=== PATIENT | male | born 1975 | race Caucasian/White ===

== ENCOUNTER 2020-11-06 09:31 | Outpatient (CLI) | payer BC ==
[~2020-11-06] VITALS: Ht 177.8 cm; Wt 99.8 kg
[2020-11-06 09:25] VITALS: BP 146/89
[2020-11-06] MEDS ORDERED: CASIRIVIMAB/IMDEVIMAB 1,200 MG in NS (IVPB) 250 ML IV ONE (10:00)
[2020-11-06] MEDS ORDERED: diphenhydrAMINE 50 MG/ML INJ (BENADRYL) IV PRN (10:00)
[2020-11-06] MEDS ORDERED: EPINEPHrine INJECTION 1 MG/ML AMP IM PRN (10:00)
[2020-11-06 11:05] VITALS: BP 133/78
== END 2020-11-06 11:55 | disposition home or self-care (01) ==
LOC: INFUSION 09:31
PROVIDERS: ATTEND Nurse Practitioner Family
DX: U07.1 COVID-19 (principal); E78.2 Mixed hyperlipidemia

== ENCOUNTER 2020-11-15 21:55 | Emergency (ER) | payer BC ==
[~2020-11-15] VITALS: Ht 177 cm; Wt 99.8 kg
--- NOTE | 2020-11-15 22:46 | ED Chest Pain ---
General Chief Complaint: Chest Pain Stated Complaint: CHEST PAIN Nursing Triage Note: c/o sternal chest pain since 1400. denies other symptoms Source: patient Exam Limitations: no limitations History of Present Illness Date Seen by Provider: Nov 15, 2020 Time Seen by Provider: 22:30 Initial Comments Patient is a 45-year-old male who presents to the emergency department today with a chief complaint of chest "pressure" and "tightness" onset at about 2:00 today. Patient states that the symptoms have waxed and waned in intensity all day. He had a little bit of pain between his shoulder blades. He denies any associated symptoms of shortness of breath, sweating or nausea. He has never had pain quite like this before. He did spend quite a bit of time [place] this [place] States that when he was coming back he noticed the symptoms. States that he has 2 days past his quarantine from active Covid even status post [employer] vaccine. Again he denies shortness of breath or cough. No recent fevers chills or URI symptoms. He does take a baby aspirin daily. All other review of systems reviewed and negative except as stated above. 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: Yes NTG SL GEOPHYSICAL OBSERVER: No Associated Symptoms: denies symptoms Allergies and Home Medications Allergies Coded Allergies: No Known Drug Allergies (Unverified , 11/06/20) Patient Home Medication List Home Medication List Reviewed: Yes Review of Systems Review of Systems Constitutional: see HPI EENTM: No Symptoms Reported Respiratory: No Symptoms Reported Cardiovascular: Chest Pain Gastrointestinal: No Symptoms Reported Genitourinary: No Symptoms Reported Musculoskeletal: no symptoms reported Skin: no symptoms reported Psychiatric/Neurological: No Symptoms Reported All Other Systems Reviewed Negative Unless Noted: Yes Past Lesjjva-Wzinza-Ucwlpv Hx Patient Social History Tobacco Use?: No Alcohol Use?: Yes Alcohol type: Beer Immunizations Up To Date First/Initial COVID19 Vaccinat: october 13 COVID19 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 oz. kg; 31.00 BMI Method: General Appearance: No Apparent Distress, WD/WN HEENT: PERRL/EOMI Neck: Normal Inspection Respiratory: Lungs Clear, Normal Breath Sounds, No Accessory Muscle Use, No Respiratory Distress Cardiovascular: Regular Rate, Rhythm Gastrointestinal: Normal Bowel Sounds, No Organomegaly, No Pulsatile Mass, Non Tender, Soft Extremity: Normal Capillary Refill, Normal Inspection, Normal Range of Motion, Non Tender, No Calf Tenderness Neurologic/Psychiatric: Alert, Oriented x3, No Motor/Sensory Deficits, Normal Mood/Affect Skin: Normal Color, Warm/Dry Progress/Results/Core Measures Results/Orders Lab Results Laboratory Tests Test 11/15/20 22:05 Range/Units White Blood Count 9.2 4.3-11.0 10^3/uL Red Blood Count 4.62 4.30-5.52 10^6/uL Hemoglobin 14.7 13.3-17.7 g/dL Hematocrit 42 40-54 % Mean Corpuscular Volume 91 80-99 fL Mean Corpuscular Hemoglobin 32 25-34 pg Mean Corpuscular Hemoglobin Concent 35 32-36 g/dL Red Cell Distribution Width 12.6 10.0-14.5 % Platelet Count 244 130-400 10^3/uL Mean Platelet Volume 10.3 9.0-12.2 fL Immature Granulocyte % (Auto) 0 % Neutrophils (%) (Auto) 59 42-75 % Lymphocytes (%) (Auto) 30 12-44 % Monocytes (%) (Auto) 8 0-12 % Eosinophils (%) (Auto) 2 0-10 % Basophils (%) (Auto) 0 0-10 % Neutrophils # (Auto) 5.4 1.8-7.8 10^3/uL Lymphocytes # (Auto) 2.8 1.0-4.0 10^3/uL Monocytes # (Auto) 0.7 0.0-1.0 10^3/uL Eosinophils # (Auto) 0.2 0.0-0.3 10^3/uL Basophils # (Auto) 0.0 0.0-0.1 10^3/uL Immature Granulocyte # (Auto) 0.0 0.0-0.1 10^3/uL Sodium Level 143 135-145 MMOL/L Potassium Level 3.5 L 3.6-5.0 MMOL/L Chloride Level 106 98-107 MMOL/L Carbon Dioxide Level 22 21-32 MMOL/L Anion Gap 15 H 5-14 MMOL/L Blood Urea Nitrogen 16 7-18 MG/DL Creatinine 1.02 0.60-1.30 MG/DL Estimat Glomerular Filtration Rate > 60 BUN/Creatinine Ratio 16 Glucose Level 114 H 70-105 MG/DL Calcium Level 9.5 8.5-10.1 MG/DL Total Creatine Kinase 46 30-200 U/L Creatine Kinase MB 0.8 <6.6 NG/ML Troponin I < 0.028 <0.028 NG/ML My Orders Orders - GUADALUPE CABA MD Ekg Tracing (11/15/20 22:44) Chest 1 View, Ap/Pa Only (11/15/20 22:44) Cbc With Automated Diff (11/15/20 22:44) Basic Metabolic Panel (11/15/20 22:44) Creatine Kinase (11/15/20 22:44) Creatine Kinase Mb (11/15/20 22:44) Troponin I (11/15/20 22:44) Aspirin Chewable Tablet (Baby Aspirin Ch (11/16/20 09:00) Vital Signs/I&O 11/15/20 22:03 Temp 36.4 Pulse 98 Resp 22 B/P (MAP) 155/110 (125) Pulse Ox 98 O2 Delivery Room Air Blood Pressure Mean: 125 Progress Progress Note : Time: 23:32 Progress Note Patient has rested comfortably throughout his stay here in the emergency department and states that his pain is almost all the way gone. Patient has had constant pain since 2:00 waxing and waning in intensity. This should be far enough out for a single set of cardiac enzymes to exclude acute coronary syndrome. Patient's risk factors for coronary artery disease include hy pertension and family history. Patient states his father had double bypass at either age 50 or 55 he cannot recall which. Patient's cholesterol status is unknown. He is not a diabetic he is not a smoker. Patient is counseled on return precautions which include if he has any increased pain especially associated with nausea shortness of breath or sweating that he needs to come ba ck to the emergency room for reevaluation. He verbalizes understanding. All questions are sought and answered. Patient is stable for discharge. Initial ECG Impression Date: Nov 15, 2020 Initial ECG Impression Time: 22:03 Initial ECG Rate: 95 Initial ECG Rhythm: Normal Sinus Initial ECG Intervals: Normal Initial ECG Intervals MN 192 QRS 103 QTC 431 Initial ECG Impression: Normal Diagnostic Imaging Diagonstic Imaging: Xray Plain Films/CT/US/NM/MRI: chest Comments Normal mediastinal structures, no effusions or infiltrates are noted Departure Impression Primary Impression: Chest pain Qualified Codes: R07.9 - Chest pain, unspecified Disposition: 01 HOME, SELF-CARE Condition: Stable Departure-Patient Inst. Decision time for Depature: 23:33 Referrals: KIERA JOE MD (PCP/Family) Primary Care Physician Patient Instructions: Chest Pain That Is Not Caused by the Heart (DC) Add. Discharge Instructions: Please call and follow-up with your primary care provider regarding your visit to the emergency room for chest pain this evening. Please follow-up within the next couple of weeks. If you have any return of symptoms especially associated with sweating, shortness of breath or nausea or radiation of the pain into your neck arms or back please come back to the emergency room for reevaluation. Continue to take your baby aspirin daily. GUADALUPE CABA MD Nov 15, 2020 22:46
[2020-11-15 22:49] LABS: BASOPHILS % (AUTO) 0 % (0-10); EOSINOPHILS # (AUTO) 0.2 10^3/uL (0.0-0.3); EOSINOPHILS % (AUTO) 2 % (0-10); HEMATOCRIT 42 % (40-54); HEMOGLOBIN 14.7 g/dL (13.3-17.7); LYMPHOCYTES # (AUTO) 2.8 10^3/uL (1.0-4.0); LYMPHOCYTES % (AUTO) 30 % (12-44); MEAN CORPUSCULAR HEMOGLOBIN 32 pg (25-34); MEAN CORPUSCULAR HGB CONC 35 g/dL (32-36); MEAN CORPUSCULAR VOLUME 91 fL (80-99); MEAN PLATELET VOLUME 10.3 fL (9.0-12.2); MONOCYTES # (AUTO) 0.7 10^3/uL (0.0-1.0); MONOCYTES % (AUTO) 8 % (0-12); NEUTROPHILS # (AUTO) 5.4 10^3/uL (1.8-7.8); NEUTROPHILS % (AUTO) 59 % (42-75); PLATELET COUNT 244 10^3/uL (130-400); WHITE BLOOD COUNT 9.2 10^3/uL (4.3-11.0)
[2020-11-15 22:55] LABS: CHLORIDE 106 MMOL/L (98-107); POTASSIUM 3.5 MMOL/L (3.6-5.0); SODIUM 143 MMOL/L (135-145)
[2020-11-15 22:56] LABS: CALCIUM 9.5 MG/DL (8.5-10.1)
[2020-11-15 22:57] LABS: GLUCOSE 114 MG/DL (70-105)
[2020-11-15 22:58] LABS: CARBON DIOXIDE 22 MMOL/L (21-32)
[2020-11-15 23:00] LABS: CREATININE SERUM 1.02 MG/DL (0.60-1.30); GFR ESTIMATED > 60
[2020-11-15 23:01] LABS: BUN/CREATININE RATIO 16
[2020-11-15 23:03] LABS: CREATINE KINASE 46 U/L (30-200)
[2020-11-15 23:08] LABS: CREATINE KINASE MB 0.8 NG/ML (<6.6)
[2020-11-15 23:37] VITALS: BP 136/93
--- NOTE | 2020-11-16 06:53 | Diagnostic Imaging Report ---
INDICATION: Chest pain COMPARISON: None. FINDINGS: Frontal view of the chest demonstrate clear lungs bilaterally. The heart size is normal. There is no pneumothorax. Osseous structures are normal. IMPRESSION: No acute findings. Normal chest. Dictated by: Dictated on workstation # [id number]
[2020-11-16] MEDS ORDERED: ASPIRIN 81 MG CHEW (CHILDREN'S ASA) PO SCH (09:00)
== END 2020-11-15 23:38 | disposition home or self-care (01) ==
LOC: EDUNIT# 21:55 → ER 21:57
DX: R07.9 Chest pain, unspecified (principal)
CPT/HCPCS: 36415; 71045; 80048; 82550; 82553; 84484; 85025; 93005

== ENCOUNTER 2022-11-02 05:43 | Outpatient (CLI) | payer BC ==
[~2022-11-02] VITALS: Ht 177.8 cm; Wt 98.2 kg
[2022-11-10] MEDS ORDERED: ATOR40TA70 PO (09:08)
[2022-11-10] MEDS ORDERED: ESCI20TA PO (09:08)
[2022-11-10] MEDS ORDERED: LISI5TAB20 PO (09:08)
== END 2022-11-10 09:16 | disposition home or self-care (01) ==
LOC: PREOP 05:43
PROVIDERS: ATTEND Internal Medicine
DX: Z01.818 Encounter for other preprocedural examination (principal)

== ENCOUNTER 2022-11-18 08:57 | Day surgery (SDC) | payer BC ==
--- NOTE | 2022-11-01 10:47 | HISTORY AND PHYSICAL ---
DATE OF SERVICE: 11/11/2022 COLONOSCOPY HISTORY AND PHYSICAL REFERRING PHYSICIAN: Dr. Mosley. HISTORY OF PRESENT ILLNESS: The patient is a 47-year-old white male referred for first screening colonoscopy. He is deemed to be of average risk. He is not aware of any family history for colon cancer or colon polyps. Occasionally, he will have some small volume bright red blood per rectum that he has attributed to hemorrhoids. This is not increased in frequency. There is no associated pain. He has had no melena, change in weight or change in bowel habit. He is not aware of any family history for colon cancer. Father is living at the age of 70, had bypass surgery in his 60s. Mother living with breast cancer and survived this a number of years ago, but has been recently diagnosed with lung cancer with a past history of tobacco consumption. Has one brother and one sister living; no reported health problems. 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 MEDICATIONS: Unknown doses of atorvastatin, lisinopril and Lexapro. PAST SURGICAL HISTORY: Significant for vasectomy. 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 He does report alcohol consumption out of the moderate range, reporting 6-12 beers, roughly 5 days a week. PHYSICAL EXAMINATION: GENERAL: Reveals a white male, appeared to be in no acute distress. VITAL SIGNS: Weight 216 pounds, blood pressure 120/70, heart rate 70 and regular. HEENT: Unremarkable. Sclerae nonicteric. CHEST: Clear to auscultation. CARDIOVASCULAR: Reveals a regular rate and rhythm without murmur, S3, or S4. ABDOMEN: Soft, supple without mass, organomegaly, or tenderness. EXTREMITIES: No cyanosis, clubbing or edema. No telangiectasias noted. ASSESSMENT AND PLAN: The patient is being set up for his first screening colonoscopy deemed to be of slightly higher than average risk as he does have some occasional intermittent small volume bright red blood per rectum. He has a history of hypertension and hyperlipidemia that appeared to be under good control. We did discuss drinking was above what was acceptable for good health, likely aggravating the need for blood pressure and cholesterol medications as well as weight. I thank you for the referral of this pleasant gentleman. Job ID: [id number] DocumentID: [id number] Dictated Date: 10/31/2022 15:55:50 Line Service Person Date: 10/31/2022 16:25:00 Dictated By: CORETTA BLACKMAN MD MTDD
[~2022-11-18] VITALS: Ht 177 cm; Wt 98.2 kg
[~2022-11-18 08:57] MED LIST: ATOR40TA70 PO; ESCI20TA PO; LISI5TAB20 PO
[2022-11-18] MEDS ORDERED: LACTATED RINGERS 1,000 ML IV STA (09:00)
[2022-11-18] MEDS ORDERED: LACTATED RINGERS 1,000 ML IV ONE (09:07)
--- NOTE | 2022-11-18 09:08 | Pre-Op Note & Conscious Sedat ---
Pre-Operative Progress Note Date H&P Reviewed: Nov 18, 2022 Time H&P Reviewed: 09:08 History & Physical: H&P Reviewed, Patient Examed, No changes noted Pre-Op Diagnosis: screening Moderate Sedation PreProcedure ASA Score 2 Airway Lungs Heart ASA score ASA 1: a normal healthy patient ASA 2: a patient with a mild systemic disease (mid diabetes, controlled hypertension, obesity ASA 3: a patient with a severe systemic disease that limits activity (angina, COPD, prior Myocardial infarction) ASA 4: a patient with an incapacitating disease that is a constant threat to life (CHF, renal failure) ASA 5: a moribund patient not expected to survive 24 hrs. (ruptured aneurysm) ASA 6: a declared brain- patient whose organs are being harvested. For emergent operations, add the letter E after the classification Mallampati Classification Grade 2 Sedation Plan Analgesia, Amnesia, Plan communicated to team members, Discussed options with patient/fam, Discussed risks with patient/fam The patient is an appropriate candidate to undergo the planned procedure, sedation, and anesthesia. The patient immediately re-assessed prior to indication. CORETTA BLACKMAN MD Nov 18, 2022 09:08
[2022-11-18 09:15] VITALS: BP 132/87
[2022-11-18] MEDS ORDERED: PROPOFOL INJECTION 50 ML IV ONE ×2 (09:52→10:16)
[2022-11-18 10:20] VITALS: BP 103/60
--- NOTE | 2022-11-18 10:20 | Anesthesia-General Post-Op ---
MAC Patient Condition Mental Status/LOC: Same as Preop Cardiovascular: Satisfactory Nausea/Vomiting: Absent Respiratory: Satisfactory Pain: Controlled Complications: Absent Post Op Complications Complications None Follow Up Care/Instructions Patient Instructions None needed. Anesthesiology Discharge Order Discharge Order Patient is doing well, no complaints, stable vital signs, no apparent adverse anesthesia problems. No complications reported per nursing. VIOLA DAMON CRNA Nov 18, 2022 10:20
--- NOTE | 2022-11-18 10:23 | Progress Note-Post Operative ---
Post-Procedure Note Physician (s)/Loss Prevention And Safety Manager (s) Physician CORETTA BLACKMAN MD Pre-Procedure Diagnosis Pre-Procedure Diagnosis: screening Post-Procedure Diagnosis Post-operative diagnosis: Prior to undergoing colonoscopy digital rectal evaluation was performed. Anal suture tone was normal and the perianal reflexes intact. Prostate is normal in size and a nodular on digital inspection. No abnormalities were noted on digital inspection of the anal canal or distal rectal vault. The colonoscope was then inserted into the rectum and under direct visualization advanced to the cecum. The cecum was identified by identification of the ileocecal valve and the cecal strap. Photographic documentation was obtained. Careful suction was made as the colonoscope withdrawn. Findings: There are no evidence for internal or external hemorrhoids. Present at the rectosigmoid junction was a diminutive 4 mm sessile polyp was biopsied and ablated with no subsequent blood loss. No other rectal abnormalities are appreciated. The sigmoid colon revealed 1 proximal 4 mm sessile polyp it was biopsied and ablated and location was in the proximal sigmoid colon. There was no subsequent blood loss. No diverticular disease was appreciated. The descending colon splenic flexure transverse colon hepatic flexure ascending colon and cecum were unremarkable. Assessment 2 diminutive polyps removed one from the rectosigmoid junction and the other 1 from the proximal sigmoid colon via hot forceps with an otherwise normal colonoscopy to the cecum. As long as there are no surprises on histopathology would advocate consideration for repeat screening colonoscopy in 10 years. I thank you for the furl this pleasant gentleman. Sincerely, Coretta Blackman MD. CC: CORETTA Gates MD Nov 18, 2022 10:22
[2022-11-18 10:25] VITALS: BP 104/63
[2022-11-18 10:35] VITALS: BP 118/71
[2022-11-18 10:45] VITALS: BP 118/71
== END 2022-11-18 11:09 | disposition home or self-care (01) ==
LOC: ENDO 08:57
PROVIDERS: ATTEND Internal Medicine
DX: Z12.11 Encounter for screening for malignant neoplasm of colon (principal); K63.5 Polyp of colon; K62.1 Rectal polyp; I10 Essential (primary) hypertension; E78.5 Hyperlipidemia, unspecified; Z79.899 Other long term (current) drug therapy